=== PATIENT | female | born 1950 | race Caucasian/White ===

== ENCOUNTER 2019-10-28 13:27 | Outpatient (CLI) | payer MEDICARE, MEDICAID, SELFPAY ==
--- NOTE | 2019-10-28 14:10 | ECG_ITS ---
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
== END 2019-10-28 13:28 | disposition home or self-care (01) ==
PROVIDERS: PCP Internal Medicine
DX: Z79.899 Other long term (current) drug therapy (principal)
CPT/HCPCS: 93005

== ENCOUNTER 2020-08-11 14:00 | Outpatient (CLI) | payer MEDICARE, MEDICAID, SELFPAY ==
--- NOTE | ~2020-08-11 | DEXA_ITS ---
Bone Density Report Name: Carmen Ware Age: 69 Sex: Female Ethnicity: White Date of : 1950 Indication: postmenopausal; screening for osteoporosis; height loss; hysterectomy; Referring Provider: Kiel Nelson Study: Bone densitometry was performed. Exam Date: August 11, 2020 Accession number: [id number] Bone Density: Region BMD T-score Z-score Classification AP Spine(L1-L4) 0.785 -2.4 -0.4 Osteopenia Femoral Neck (Left) 0.631 -2.0 -0.2 Osteopenia Total Hip (Left) 0.715 -1.9 -0.4 Osteopenia Femoral Neck (Right) 0.545 -2.7 -1.0 Osteoporosis Total Hip (Right) 0.674 -2.2 -0.8 Osteopenia Femoral Neck Mean 0.588 -2.3 -0.6 Osteopenia Total Hip Mean 0.695 -2.0 -0.6 Osteopenia World Health Organization criteria for BMD impression classify patients as: Normal (T-score at or above -1.0), Osteopenia (T-score between -1.0 and -2.5), or Osteoporosis (T-score at or below -2.5). 10-year Fracture Risk: FRAX not reported because: Some T-score for Spine Total or Hip Total or Femoral Neck at or below -2.5 Clinical Information Provided by Patient: Smokes Has the following medical conditions: Hysterectomy Patient maximum height was 60 Menopause Age: 48 No regular weight bearing exercise Drinks caffeinated beverages Onset of menses at age 10 Missed period for more than 6 months in a row Impression: The patient has osteoporosis, based on the Right Femoral Neck T-score. The patient has risk factors, including: smoking. Discussion: INCREASED RISK OF FRACTURE. BONE DENSITY IS UNDESIRABLY LOW AT ONE OR MORE SKELETAL SITES, CONSISTENT WITH POSTMENOPAUSAL OSTEOPOROSIS. This patient's lowest T-score meets the World Health Organization's (WHO) criteria for osteoporosis at one or more sites (T-score -2.5 or below). In untreated patients, the risk of osteoporotic fracture increases approximately two-fold for each 1.0 SD decrease in T-score. Low bone density is not the only risk factor for fracture; also consider factors such as patient's age, frailty or poor health, risk of falling, risk of injury, previous osteoporotic fracture, family history of osteoporosis, cigarette smoking, low body weight, etc. Not everyone with low bone mineral density has osteoporosis; osteomalacia and other metabolic bone disorders should also be considered. Patients who have osteoporosis should be evaluated for specific diseases and conditions (secondary causes) that may cause or contribute to bone loss. The [place] Association of Clinical Endocrinologists (AACE) and National Osteoporosis Foundation (NOF) recommend pharmacologic intervention for all postmenopausal women whose T-score is in this range. The patient should follow a healthful lifestyle (good nutrition with adequate calcium and vitamin D, and appropriate weight
[2020-08-11 14:21] LABS: Basophils Absolute Auto 0.08 K/mm3 (0.00-0.10); Basophils Percent Auto 0.7 % (0.0-1.0); Eosinophils Absolute Auto 0.19 K/mm3 (0.02-0.50); Eosinophils Percent Auto 1.8 % (1.0-6.0); Hematocrit 46.3 % (35.0-42.0); Hemoglobin 15.5 g/dL (11.7-13.8); Immature Granulocyte Absolute 0.04 K/mm3 (0.00-0.00); Immature Granulocyte Percent A 0.4 % (0.0-0.0); Lymphocytes Absolute Auto 3.25 K/mm3 (1.10-4.50); Lymphocytes Percent Auto 30.3 % (18.0-42.0); Mean Corpuscular HGB Conc 33.5 g/dL (32.0-36.0); Mean Corpuscular Hemoglobin 30.5 pg (27.0-31.0); Mean Platelet Volume 9.5 fl (9.2-11.8); Monocytes Absolute Auto 0.72 K/mm3 (0.10-0.90); Monocytes Percent Auto 6.7 % (2.0-11.0); Neutrophils Absolute Auto 6.5 K/mm3 (1.7-7.2); Neutrophils Percent Auto 60.1 % (50.0-70.0); Platelet Count Result 301 K/mm3 (150-420); Red Blood Count 5.09 M/mm3 (4.20-5.40); Red Cell Distribution Width 13.2 % (11.6-14.4); White Blood Count 10.7 K/mm3 (4.8-10.8)
[2020-08-11 15:51] LABS: Alanine Aminotransferase 12 U/L (14-59); Albumin Level 3.5 g/dL (3.4-5.0); Alkaline Phosphatase 107 U/L (46-116); Anion Gap 9 mmol/L (8-16); Aspartate Amino Transferase 11 U/L (15-37); Bilirubin,Total 0.3 mg/dL (0.00-1.00); Blood Urea Nitrogen 11 mg/dL (7-18); Calcium 8.7 mg/dL (8.5-10.1); Carbon Dioxide 29 mmol/L (21-32); Chloride 96 mmol/L (98-108); Cholesterol 200 mg/dL (0-200); Estimated Glomerular Filt Rate 58; Glucose 73 mg/dL (70-99); HDL Direct 63 mg/dL (40-60); LDL Cholesterol Calculated 123 mg/dL (<130); Magnesium 2.1 mg/dL (1.8-2.4); Osmolality Calculated 276 mOsm/kg (285-295); Potassium 3.4 mmol/L (3.5-5.1); Sodium 134 mmol/L (136-145); Total Protein 7.4 g/dL (6.4-8.2); Triglycerides 72 mg/dL (0-150)
== END 2020-08-11 14:01 | disposition home or self-care (01) ==
LOC: CHSLAB 14:02
PROVIDERS: PCP Internal Medicine; Visit Provider Internal Medicine
DX: M81.0 Age-related osteoporosis without current pathological fracture (principal); J44.9 Chronic obstructive pulmonary disease, unspecified; I12.9 Hypertensive chronic kidney disease with stage 1 through stage 4 chronic kidney disease, or unspecified chronic kidney disease; N18.2 Chronic kidney disease, stage 2 (mild)
CPT/HCPCS: 36415; 77080; 80053; 80061; 83735; 85025

== ENCOUNTER 2020-11-17 08:53 | Outpatient (CLI) | payer MEDICARE, MEDICAID, SELFPAY ==
--- NOTE | ~2020-11-17 | XR_ITS ---
EXAMINATION: XR barium swallow EXAM DATE: 11/17/2020 10:06 INDICATION: Cough. Dysphagia. Sore throat. TECHNIQUE: Standard contrast barium esophagram examination was performed. Effervescent crystals were ingested. The DAP for this procedure was 1.7 Gycm2. Correlation is made to chest CT same day. FINDINGS: The pharynx is symmetric and without evidence of mass lesion or mucosal irregularity. Ther e is no esophageal stricture or mass identified. There are no esophageal diverticula. Moderate size sliding gastroesophageal hiatal hernia. No aspiration was demonstrated. There are cholecystectomy cli ps. IMPRESSION: Moderate size sliding gastroesophageal hiatal hernia. Reviewed, dictated and finalized at location B. DEVELOPER
--- NOTE | ~2020-11-17 | CT_ITS ---
EXAMINATION: CT diagnostic chest w con EXAM DATE: 11/17/2020 10:07 INDICATION: Dysphagia, cough, sore throat. TECHNIQUE: Spiral CT of the chest following intravenous injection of 75 mL Omnipaque 350. Axial, cor onal and sagittal images were reviewed. Coronal maximum intensity pixel images of chest reviewed. T he dose-length product (DLP) for this examination was 153.63 mGy-cm. The exposure was tailored accor ding to patient size (auto mA exposure control), and iterative reconstruction (ASIR) was used as dudley tional dose reduction technique. Comparison is made to prior examination from 08/23/2019. FINDINGS: There is been improvement in the previously seen scattered small opacities, likely resolut ion of the acute component of previously seen airspace disease. There is persistent faint diffuse tremayne trilobular groundglass opacities. Given that this is suspected to be chronic, would consider respirat ory bronchiolitis-interstitial lung disease (RB ILD), hypersensitivity pneumonitis, chronic infection . Please clinically correlate. No confluent consolidation or acute pneumonia. There is 4 mm nodule right lower lobe image 71, and an other right lower lobe image 43, stable noncalcified granulomata. No suspicious nodules. Mild emphyse ma and moderate hyperinflation. There are no pleural or pericardial effusions. Tracheobronchial barbra e is patent. There is no mediastinal, hilar or axillary lymphadenopathy. There is no pneumothorax . Heart normal in size. No evidence of coronary arterial calcification. There are cholecystectom y clips. There is moderate sliding gastroesophageal hiatal hernia. Thoracic esophagus unremarkable. T here is thoracic spondylosis without osteoblastic or osteolytic lesions identified. IMPRESSION: 1. Faint diffuse centrilobular from glass nodular opacities, could be RB-ILD if patient is smoker. O ther possibilities above. 2. Resolution of previously acute component of the airspace disease. 3. Emphysema, hyperinflation. 4. Moderate-sized hiatal hernia. Reviewed, dictated and finalized at location B. 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 Faint diffuse centrilobular from glass nodular opacities, could be RB-ILD i f patient is smoker. Other possibilities above. 2. Resolution of previously acute component of the airspace disease. 3. Emphysema, hyperinflation. 4. Moderate-sized hiatal hernia.
[2020-11-17 09:29] LABS: Estimated Glomerular Filt Rate 49
== END 2020-11-17 08:54 | disposition home or self-care (01) ==
LOC: CHSIMG 08:56
PROVIDERS: PCP Internal Medicine; Visit Provider Internal Medicine
DX: R13.10 Dysphagia, unspecified (principal); R05 Cough
CPT/HCPCS: 71260; 74220; Q9967

== ENCOUNTER 2021-01-08 10:52 | Outpatient (CLI) | payer MEDICARE, MEDICAID, SELFPAY ==
--- NOTE | ~2021-01-08 | XR_ITS ---
EXAMINATION: XR knee LT 3V DATE: 01/08/2021 11:34 INDICATION: Left knee pain. TECHNIQUE: 3 views of left knee were obtained. COMPARISON: None. FINDINGS: Bone alignment is normal. No fracture. There is mild osteoarthritis of medial and patellofe moral compartments. No knee joint effusion. IMPRESSION: 1. Mild left knee osteoarthritis. Reviewed, dictated and finalized at location A.
--- NOTE | ~2021-01-08 | XR_ITS ---
EXAMINATION: XR hand LT min 3V DATE: 01/08/2021 11:35 INDICATION: Left hand pain. TECHNIQUE: 3 views of left hand were obtained. COMPARISON: Left wrist radiographs 05/13/2008 FINDINGS: There is an old healed fracture of distal radius with internal fixation with volar plate an d screws. No acute fracture. There is mild osteoarthritis of triscaphe joint and first carpometacarpa l joint. There is moderate osteoarthritis of first metacarpophalangeal joint and mild osteoarthritis of second-fourth metacarpophalangeal joints. There is severe osteoarthritis of first interphalangeal joint and second distal interphalangeal joint, moderate osteoarthritis of third and fifth distal inte rphalangeal joints, and mild osteoarthritis of the other interphalangeal joints. IMPRESSION: 1. Polyarticular osteoarthritis. Reviewed, dictated and finalized at location A.
--- NOTE | ~2021-01-08 | XR_ITS ---
EXAMINATION: XR wrist LT min 3V DATE: 01/08/2021 11:35 INDICATION: Left wrist injury and pain. TECHNIQUE: 4 views of left wrist were obtained. COMPARISON: None. FINDINGS: Bone alignment is normal. There is an old healed fracture of distal radius with internal fi xation with volar plate and screws. There is 9 degrees palmar tilt of the distal articular surface. N o acute fracture. There is mild osteoarthritis of triscaphe joint and first carpometacarpal joint. IMPRESSION: 1. Mild polyarticular osteoarthritis. 2. Old healed fracture of distal radius with internal fixation. Reviewed, dictated and finalized at location A.
[2021-01-08 11:09] LABS: Basophils Absolute Auto 0.15 K/mm3 (0.00-0.10); Basophils Percent Auto 1.9 % (0.0-1.0); Hematocrit 45.6 % (35.0-42.0); Hemoglobin 14.9 g/dL (11.7-13.8); Immature Granulocyte Absolute 0.03 K/mm3 (0.00-0.00); Immature Granulocyte Percent A 0.4 % (0.0-0.0); Lymphocytes Absolute Auto 2.48 K/mm3 (1.10-4.50); Mean Corpuscular HGB Conc 32.7 g/dL (32.0-36.0); Mean Corpuscular Hemoglobin 30.2 pg (27.0-31.0); Mean Corpuscular Volume 92.3 fL (78.0-102.0); Monocytes Absolute Auto 0.72 K/mm3 (0.10-0.90); Neutrophils Absolute Auto 4.2 K/mm3 (1.7-7.2); Neutrophils Percent Auto 52.7 % (50.0-70.0); Platelet Count Result 279 K/mm3 (150-420); Red Blood Count 4.94 M/mm3 (4.20-5.40)
[2021-01-08 11:37] LABS: Alanine Aminotransferase 14 U/L (14-59); Alkaline Phosphatase 94 U/L (46-116); Anion Gap 8 mmol/L (8-16); Aspartate Amino Transferase < 10 U/L (15-37); Bilirubin,Total 0.4 mg/dL (0.00-1.00); Blood Urea Nitrogen 13 mg/dL (7-18); Calcium 8.3 mg/dL (8.5-10.1); Carbon Dioxide 24 mmol/L (21-32); Chloride 104 mmol/L (98-108); Estimated Glomerular Filt Rate 56; Glucose 76 mg/dL (70-99); Magnesium 2.1 mg/dL (1.8-2.4); Osmolality Calculated 281 mOsm/kg (285-295); Potassium 4.3 mmol/L (3.5-5.1); Sodium 136 mmol/L (136-145); Total Protein 6.5 g/dL (6.4-8.2)
== END 2021-01-08 10:53 | disposition home or self-care (01) ==
PROVIDERS: PCP Internal Medicine; Visit Provider Internal Medicine
DX: S69.92XA Unspecified injury of left wrist, hand and finger(s), initial encounter (principal); S89.92XA Unspecified injury of left lower leg, initial encounter
CPT/HCPCS: 36415; 73110; 73130; 73562; 80053; 83735; 85025

== ENCOUNTER 2021-04-04 08:10 | Outpatient (CLI) | payer MEDICARE, MEDICAID, SELFPAY ==
--- NOTE | ~2021-04-04 | CT_ITS ---
EXAMINATION: CT lung screening DATE: 04/04/2021 09:09 INDICATION: Personal history of tobacco dependence, current smoker with 50 pack year history TECHNIQUE: Computed tomography (CT) of the chest was performed without intravenous contrast. The dose -length product (DLP) was 82.78 mGy-cm. Automated exposure control and iterative reconstruction techn [place] were employed. COMPARISON: 11/17/2020, 03/03/2019 FINDINGS: There is mild emphysema. Stable 5 mm nodules of the right lower lobe are consistent with ol d granulomatous disease. No new pulmonary nodules are identified. The lungs are free of acute opaciti es. There is no pleural effusion or pneumothorax. There is a large sliding hiatal hernia. No patholog ically enlarged thoracic lymph nodes are identified. The heart size is normal. Calcified coronary art tono atherosclerosis is noted. The gallbladder is surgically absent. There is a [address] one of the left kidney. There is moderate thoracic spondylosis. IMPRESSION: 1. Lung-RADS category 2: Benign appearance or behavior. Continue annual screening with noncontrast lo w-dose chest CT in 12 months. Reviewed, dictated and finalized at location A. IMPRESSION: 1. Lung-RADS category 2: Benign appearance or behavior. Continue annual screeni ng with noncontrast low-dose chest CT in 12 months.
--- NOTE | ~2021-04-04 | MR_ITS ---
EXAMINATION: MR brain/brain stem wo con EXAM DATE: 04/04/2021 09:43 INDICATION: Ataxia, unsteady gait, leg weakness. TECHNIQUE: Magnetic resonance imaging (MRI) of the brain/brain stem obtained without contrast. Leónitt al T1, axial diffusion, gradient echo (T2*), T1, T2, FLAIR sequences obtained. Comparison is made to prior examination from 08/20/2014. FINDINGS: There are no areas of restricted diffusion to suggest acute infarction. There is no acute hemorrhage seen on the T2*, a hemosiderin sensitive sequence. No intraparenchymal brain mass lesion. There is mild periventricular and subcortical T2/FLAIR signal hyperintensity, nonspecific but probab ly related to small vessel ischemic disease (microangiopathy), mild progression in these compared to 2014. There are no extra-axial collections. Flow voids are seen in the cerebral arteries on the T2- weighted sequences consistent with their expected patency. The orbits are unremarkable. Soft tissue is unremarkable. Trace right mastoid effusion. IMPRESSION: 1. No acute intracranial findings. 2. Mild microangiopathy. Reviewed, dictated and finalized at location B.
== END 2021-04-04 08:11 | disposition home or self-care (01) ==
LOC: CHSIMG 08:12
PROVIDERS: PCP Internal Medicine; Visit Provider Internal Medicine
DX: R27.0 Ataxia, unspecified (principal); J44.9 Chronic obstructive pulmonary disease, unspecified; Z12.2 Encounter for screening for malignant neoplasm of respiratory organs; Z87.891 Personal history of nicotine dependence
CPT/HCPCS: 70551; 71271

== ENCOUNTER 2021-07-26 11:05 | Outpatient (CLI) | payer MEDICARE, MEDICAID, SELFPAY ==
[2021-07-26 11:49] LABS: SARS-CoV-2 RNA PCR Negative (Negative)
== END 2021-07-26 11:06 | disposition home or self-care (01) ==
LOC: CHSLAB 11:08
PROVIDERS: PCP Internal Medicine; Visit Provider Internal Medicine
DX: Z20.822 Contact with and (suspected) exposure to COVID-19 (principal)
CPT/HCPCS: C9803; U0003; U0005

== ENCOUNTER 2021-09-14 12:20 | Outpatient (CLI) | payer MEDICARE, SELFPAY ==
[2021-09-14 12:42] LABS: Basophils Absolute Auto 0.07 K/mm3 (0.00-0.10); Basophils Percent Auto 0.7 % (0.0-1.0); Eosinophils Absolute Auto 0.12 K/mm3 (0.02-0.50); Eosinophils Percent Auto 1.2 % (1.0-6.0); Hematocrit 37.3 % (35.0-42.0); Hemoglobin 12.3 g/dL (11.7-13.8); Immature Granulocyte Absolute 0.04 K/mm3 (0.00-0.00); Immature Granulocyte Percent A 0.4 % (0.0-0.0); Lymphocytes Absolute Auto 2.36 K/mm3 (1.10-4.50); Lymphocytes Percent Auto 24.5 % (18.0-42.0); Mean Corpuscular Hemoglobin 30.4 pg (27.0-31.0); Mean Corpuscular Volume 92.1 fL (78.0-102.0); Mean Platelet Volume 10.5 fl (9.2-11.8); Monocytes Absolute Auto 0.87 K/mm3 (0.10-0.90); Neutrophils Absolute Auto 6.2 K/mm3 (1.7-7.2); Neutrophils Percent Auto 64.2 % (50.0-70.0); Platelet Count Result 234 K/mm3 (150-420); Red Blood Count 4.05 M/mm3 (4.20-5.40); White Blood Count 9.6 K/mm3 (4.8-10.8)
[2021-09-14 12:47] LABS: Base Excess ABG -2.8 mmol/L (0-2); HCO3 ABG 20.3 mmol/L (23-29); Oxygen Content ABG 16.8 %vol (16.0-22.0); Oxygen Saturation ABG 98.7 % (95-97); Oxyhemoglobin 92.1 % (94-100); PCO2 ABG 30.4 mmHg (35-45); PO2 ABG 142.6 mmHg (75-85); Total Hemoglobin 12.8 g/dL (12.0-18.0); pH ABG 7.44 (7.35-7.45)
[2021-09-14 12:49] LABS: Device ROOM AIR; Modified Allen's Test Pass; Site Drawn RIGHT RADIAL
[2021-09-14 13:21] LABS: Alanine Aminotransferase 11 U/L (14-59); Albumin Level 2.4 g/dL (3.4-5.0); Alkaline Phosphatase 79 U/L (46-116); Amylase 39 U/L (25-115); Anion Gap 13 mmol/L (8-16); Aspartate Amino Transferase < 10 U/L (15-37); Bilirubin,Total 0.3 mg/dL (0.00-1.00); Blood Urea Nitrogen 11 mg/dL (7-18); Calcium 7.9 mg/dL (8.5-10.1); Carbon Dioxide 21 mmol/L (21-32); Chloride 108 mmol/L (98-108); Estimated Glomerular Filt Rate > 60; Glucose 75 mg/dL (70-99); Lipase 47 U/L (73-393); NT Pro B Type Natriuretic Pept 2114 pg/mL (0-125); Osmolality Calculated 292 mOsm/kg (285-295); Sodium 142 mmol/L (136-145)
[2021-09-14 14:33] LABS: Creatine Kinase 23 U/L (26-192); Lactate Dehydrogenase 160 U/L (81-234); Troponin I 6.8 ng/L (0.00-60.4)
== END 2021-09-14 12:21 | disposition home or self-care (01) ==
LOC: CHSLAB 12:22
PROVIDERS: PCP Internal Medicine; Visit Provider Internal Medicine
DX: R06.00 Dyspnea, unspecified (principal); J44.9 Chronic obstructive pulmonary disease, unspecified; R10.9 Unspecified abdominal pain
CPT/HCPCS: 36415; 36600; 80053; 82150; 82550; 82553; 82805; 83615; 83690; 83880; 84484; 85025

== ENCOUNTER 2021-09-28 12:57 | Outpatient (CLI) | payer MEDICARE, MEDICAID, SELFPAY ==
--- NOTE | 2021-09-28 13:10 | ECHO_ITS ---
Patient Info Name: Carmen Ware Age: 70 years : 1950 Gender: Female Ht: 59 in Wt: 152 lbs BSA: 1.72 m2 HR: 75 bpm BP: 153 / 58 mmHg Technical Quality: Good Exam Date: 09/28/2021 1:58 PM Exam Location: [facility] Patient Status: Outpatient Admit Date: 09/28/2021 Staff Ordering Physician: Kiel Nelson MD Metalizer: Consuelo Haley Attending Provider: Kiel Nelson MD Exam Type: CA echo doppler color flow Study Info Indications R06.00 - Dyspnea, unspecified Complete two-dimensional, color flow and Doppler transthoracic echocardiogram is performed. Strain analysis performed. Summary 1. Complete two-dimensional, color flow and Doppler transthoracic echocardiogram is performed. 2. Left ventricular chamber dimension is normal. 3. Left ventricular systolic function is normal, estimated at 60-65%. 4. There is mildly increased left ventricular wall thickness. 5. The left ventricular diastolic function is abnormal. 6. E/e' 17 is elevated. 7. Global longitudinal strain is mildly abnormal at -16.3%. 8. There is mild to moderate aortic valve regurgitation. 9. There is mild mitral valve regurgitation. 10. Mild pulmonary hypertension, estimated pulmonary arterial systolic pressure is 47 mmHg. 11. There is mild pulmonic regurgitation. Left Ventricle E/e' 17 is elevated. Global longitudinal strain is mildly abnormal at -16.3%. Left ventricular chamber dimension is normal. Left ventricular systolic function is normal, estimated at 60-65%. There is mildly increased left ventricular wall thickness. The left ventricular diastolic function is abnormal. Right Ventricle Right ventricular systolic function is normal and with normal TAPSE 2.0 cm. Right ventricular chamber dimension is normal. Left Atria Left atrial chamber dimension is normal. Right Atria Right atrial chamber dimension is normal. Aortic Valve The aortic valve is trileaflet. There is no aortic valve stenosis. There is mild to moderate aortic valve regurgitation. Pulmonic Valve There is mild pulmonic regurgitation. Mitral Valve There is no mitral valve stenosis. There is mild mitral valve regurgitation. Tricuspid Valve There is no tricuspid valve regurgitation. Mild pulmonary hypertension, estimated pulmonary arterial systolic pressure is 47 mmHg. Pericardium/Pleural There is no pericardial effusion. Inferior Vena Cava Normal inferior vena cava with >50% collapse upon inspiration consistent with normal right atrial pressure, 5 mmHg. Aorta The aortic root size at the sinus of Valsalva is normal. Left Ventricular Outflow Tract Name Value Normal LVOT 2D LVOT Diameter 2.0 cm LVOT Doppler LVOT Peak Velocity 107 cm/s LVOT Peak Gradient 5 mmHg LVOT Mean Gradient 2 mmHg LVOT VTI 28 cm LVOT VTI/AV VTI Ratio 1.0 LVOT Stroke Volume 86 ml Mitral Valve Name
== END 2021-09-28 12:58 | disposition home or self-care (01) ==
LOC: CHSIMG 13:01
PROVIDERS: PCP Internal Medicine; Visit Provider Internal Medicine
DX: R06.00 Dyspnea, unspecified (principal); I50.9 Heart failure, unspecified
CPT/HCPCS: 93306

== ENCOUNTER 2021-11-21 12:57 | Outpatient (CLI) | payer MEDICARE, MEDICAID, SELFPAY ==
[2021-11-21 13:52] LABS: SARS-CoV-2 RNA PCR Negative (Negative)
== END 2021-11-21 12:58 | disposition home or self-care (01) ==
LOC: CHSLAB 12:59
PROVIDERS: PCP Internal Medicine; Visit Provider Internal Medicine
DX: Z20.822 Contact with and (suspected) exposure to COVID-19 (principal)
CPT/HCPCS: C9803; U0003; U0005

== ENCOUNTER 2021-12-05 09:36 | Outpatient (CLI) | payer MEDICARE, MEDICAID, SELFPAY ==
[2021-12-05 10:20] VITALS: PULSE 81; O2SAT 96
[2021-12-05 10:25] VITALS: PULSE 99; O2SAT 95
[2021-12-05 10:35] VITALS: PULSE 82; O2SAT 96
--- NOTE | 2021-12-05 11:13 | HOMEO2EVAL ---
Evaluation was performed at [facility] Home Oxygen Evaluation RC: Home Oxygen (O2) Evaluation Start: 12/05/21 11:11 Freq: Status: Active Protocol: RPE Activity Type Activity Date Activity User E-Sign Co-Sign Detail Recorded Client Recorded Date Recorded By Document 12/05/21 10:20 DJO [id number] 12/05/21 11:13 DJO Document 12/05/21 10:25 [email or web address] [email or web address] 12/05/21 11:13 DJO Document 12/05/21 10:35 [email or web address] [email or web address] 12/05/21 11:13 DJO 12/05/21 12/05/21 12/05/21 10:20 10:25 10:35 Home O2 Evaluation Test Phase Resting Exercise Resting Oxygen Delivery Room Air Room Air Room Air Pulse Oximetry (90-100 %) 96 95 96 Pulse Rate (60-100 beats/min) 81 99 82 Activity Tolerance Good Rating of Perceived Dyspnea (PD) +1 Mild, Noticeable to the Participant but Not to an Observer Ambulation Distance (feet) 500 Ambulation Distance (meters) 152.39 Treatment Charges O2 Evaluation - Outpatient
--- NOTE | 2021-12-05 12:43 | WPDPFTINT ---
PFT Procedure Performed PFT Procedure Performed Spirometry with Pre/Post Bronchodilator Plethysmography (Lung Vol) Diffusing Cap (DLCO) Flow Vol Loop PFT Interpretation This is a pulmonary function test with pre and post-bronchodilator spirometry, plethysmography and diffusing capacity. The test was performed and results interpreted in accordance with the 2019 and 2005 ATS/ERS Task Force guidelines respectively using the Global Lung Function Initiative-2012 reference equations. Patient demonstrated good effort and cooperation. Reproducibility criteria were met. The quality of the pre bronchodilator spirometry maneuver was Grade B and post bronchodilator spirometry maneuver was Grade B. Findings: Spirometry: There is decreased maximal expiratory airflow at low lung but low lung volumes with a mildly concave expiratory flow tracing. The pre bronchodilator FVC is 2.42 L, 102% predicted. The pre bronchodilator FEV1 is 1.69 L, 91% predicted. The FEV1: FVC ratio 70%. The post bronchodilator FVC is 2.44 L, representing 1% increase. The post bronchodilator FEV1 is 1.53 L, representing a 10% decrease. The post bronchodilator FEV1: FVC ratio 63%. Plethysmography: The total lung capacity is 4.64 L, 108% predicted. The functional residual capacity is 2.68 L, 110% predicted. The residual volume is 2.17 L, 112% predicted. Diffusing capacity: The diffusing capacity unadjusted for hemoglobin and carboxyhemoglobin is 11.2, 61% predicted. The diffusing capacity adjusted for alveolar volume is 3.38, 75% predicted. Impression: There is a mild obstructive abnormality with a normal FEV1 and without significant improvement after inhaling a single dose of albuterol. the lung volumes are normal. The diffusing capacity unadjusted for hemoglobin and carboxyhemoglobin is mildly decreased and normalizes when adjusted for alveolar volume. There are no prior studies for comparison
== END 2021-12-05 09:37 | disposition home or self-care (01) ==
PROVIDERS: PCP Internal Medicine; Visit Provider Internal Medicine Pulmonary Disease
DX: J44.9 Chronic obstructive pulmonary disease, unspecified (principal); R06.00 Dyspnea, unspecified; R94.2 Abnormal results of pulmonary function studies
CPT/HCPCS: 94060; 94618; 94726; 94729

== ENCOUNTER 2022-01-14 15:02 | Outpatient (CLI) | payer MEDICARE, MEDICAID, SELFPAY ==
--- NOTE | 2022-01-14 15:05 | ECG_ITS ---
Measurements Intervals [place] Rate: 76 P: 52 MN: 154 QRS: 45 QRSD: 86 T: 53 QT: 437 QTc: 493 Interpretive Statements SINUS RHYTHM DELAYED PRECORDIAL R/S TRANSITION BORDERLINE ST-T WAVE ABNORMALITY- HIGH LATERAL LEADS BORDERLINE ECG Electronically Signed On 01-14-2022 15:18:21 CDT by Noah Raman D.O.
== END 2022-01-14 15:03 | disposition home or self-care (01) ==
LOC: CHSIMG 15:05
PROVIDERS: PCP Internal Medicine; Visit Provider Internal Medicine Cardiovascular Disease
DX: I51.89 Other ill-defined heart diseases (principal)
CPT/HCPCS: 93005

== ENCOUNTER 2022-01-25 09:53 | Outpatient (CLI) | payer MEDICARE, MEDICAID, SELFPAY ==
[2022-01-25 17:52] LABS: SARS-CoV-2 RNA PCR Negative (Negative)
== END 2022-01-25 09:54 | disposition home or self-care (01) ==
LOC: CHSLAB 09:58
PROVIDERS: PCP Internal Medicine; Visit Provider Ophthalmology
DX: Z20.822 Contact with and (suspected) exposure to COVID-19 (principal)
CPT/HCPCS: C9803; U0003; U0005

== ENCOUNTER 2022-04-23 13:55 | Outpatient (CLI) | payer MEDICARE, MEDICAID, SELFPAY ==
[2022-04-23 14:11] LABS: Basophils Percent Auto 1.2 % (0.0-1.0); Eosinophils Percent Auto 3.7 % (1.0-6.0); Hematocrit 41.2 % (35.0-42.0); Hemoglobin 13.2 g/dL (11.7-13.8); Immature Granulocyte Absolute 0.03 K/mm3 (0.00-0.00); Immature Granulocyte Percent A 0.4 % (0.0-0.0); Lymphocytes Absolute Auto 3.01 K/mm3 (1.10-4.50); Lymphocytes Percent Auto 37.3 % (18.0-42.0); Mean Corpuscular Hemoglobin 28.8 pg (27.0-31.0); Monocytes Absolute Auto 0.69 K/mm3 (0.10-0.90); Monocytes Percent Auto 8.6 % (2.0-11.0); Neutrophils Absolute Auto 3.9 K/mm3 (1.7-7.2); Neutrophils Percent Auto 48.8 % (50.0-70.0); Platelet Count Result 295 K/mm3 (150-420); Red Blood Count 4.58 M/mm3 (4.20-5.40); Red Cell Distribution Width 17.1 % (11.6-14.4); White Blood Count 8.1 K/mm3 (4.8-10.8)
[2022-04-23 14:38] LABS: Alanine Aminotransferase 9 U/L (14-59); Albumin Level 3.2 g/dL (3.4-5.0); Alkaline Phosphatase 112 U/L (46-116); Anion Gap 9 mmol/L (8-16); Aspartate Amino Transferase < 10 U/L (15-37); Bilirubin,Total 0.2 mg/dL (0.00-1.00); Blood Urea Nitrogen 12 mg/dL (7-18); Calcium 8.3 mg/dL (8.5-10.1); Carbon Dioxide 23 mmol/L (21-32); Chloride 108 mmol/L (98-108); Cholesterol 198 mg/dL (0-200); Estimated Glomerular Filt Rate 50; Glucose 81 mg/dL (70-99); HDL Direct 55 mg/dL (40-60); LDL Cholesterol Calculated 130 mg/dL (<130); NT Pro B Type Natriuretic Pept 1369 pg/mL (0-125); Osmolality Calculated 288 mOsm/kg (285-295); Potassium 3.6 mmol/L (3.5-5.1); Sodium 140 mmol/L (136-145); Triglycerides 65 mg/dL (0-150)
[2022-04-24 09:29] LABS: Phosphorus 3.8 mg/dL (2.6-4.7)
== END 2022-04-23 13:56 | disposition home or self-care (01) ==
PROVIDERS: PCP Internal Medicine; Visit Provider Internal Medicine Cardiovascular Disease
DX: R06.00 Dyspnea, unspecified (principal); R53.83 Other fatigue; I10 Essential (primary) hypertension; J44.9 Chronic obstructive pulmonary disease, unspecified; I51.89 Other ill-defined heart diseases; E83.51 Hypocalcemia
CPT/HCPCS: 36415; 80053; 80061; 83880; 84100; 85025

== ENCOUNTER 2022-05-07 15:04 | Outpatient (CLI) | payer MEDICARE, MEDICAID, SELFPAY ==
[2022-05-09 14:17] LABS: Vitamin D 25 Hydroxy 8 ng/mL (30-100)
[2022-05-10 13:32] LABS: Parathyroid Intact 55 pg/mL (14-64)
== END 2022-05-07 15:05 | disposition home or self-care (01) ==
LOC: CHSLAB 15:10
PROVIDERS: PCP Internal Medicine; Visit Provider Internal Medicine
DX: E83.51 Hypocalcemia (principal)
CPT/HCPCS: 36415; 82306; 83970

== ENCOUNTER 2022-07-01 09:06 | Outpatient (CLI) | payer MEDICARE, MEDICAID, SELFPAY ==
--- NOTE | ~2022-07-01 | XR_ITS ---
XR shoulder LT min 2V DATE: 07/01/2022 09:31 INDICATION: Left shoulder pain since hitting doorway one month ago TECHNIQUE: 4 views COMPARISON: 07/31/2018 left shoulder FINDINGS: There is osteopenia. No recent fracture or dislocation, periosteal reaction or bone destruction of the left shoulder or ab normal left shoulder soft tissue calcification. Mild degenerative change at the left acromioclavicula r joint. Old healed fracture of the posterolateral left seventh rib. Diffuse idiopathic skeletal hyperostosis of the thoracic spine. IMPRESSION: No recent fracture or dislocation Osteopenia Reviewed, dictated and finalized at location A.
== END 2022-07-01 09:07 | disposition home or self-care (01) ==
PROVIDERS: PCP Internal Medicine; Visit Provider Internal Medicine
DX: M25.512 Pain in left shoulder (principal)
CPT/HCPCS: 73030

== ENCOUNTER 2022-07-21 10:19 | Emergency (ER) | payer MEDICARE, MEDICAID, SELFPAY ==
--- NOTE | ~2022-07-21 | CT_ITS ---
EXAMINATION: CT lumbar spine wo con DATE: 07/21/2022 12:11 INDICATION: Low back pain TECHNIQUE: Computed tomography (CT) of the lumbar spine was performed without intravenous contrast. T he dose-length product (DLP) was 347.72 mGy-cm. Iterative reconstruction was used. COMPARISON: 08/23/2019 FINDINGS: There are 2 mm of anterolisthesis of L3 on L4. The vertebral body heights are maintained. T here is no fracture. There is mild loss of intervertebral disc space height at L2-3. Small degenerati ve osteophytes project from the anterior endplates of multiple vertebral bodies. There is mild to mod erate facet joint osteoarthritis. Severe spondylosis is noted in the lower thoracic spine. The prever tebral soft tissues are normal. There is a 3 mm nonobstructing stone of the left kidney. A moderate-s ized sliding hiatal hernia is noted. IMPRESSION: 1. Mild lumbar spondylosis without acute findings. Reviewed, dictated and finalized at location A. 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
[2022-07-21 10:35] VITALS: BP 182/78; PULSE 76; RESP 16; TEMP 36.6; O2SAT 98
--- NOTE | 2022-07-21 10:48 | ED.BACK ---
HPI - Back Pain/Injury General Chief Complaint: Back Pain/Injury Stated Complaint: back pain low Time Seen by Provider: 07/21/22 10:48 Source: patient and RN notes reviewed Mode of arrival: ambulatory Limitations: no limitations History of Present Illness HPI Narrative: Patient states that she was just sitting in a chair playing a game on her phone when she had sudden onset of lumbar back pain. She does not recall any injury. She denies any numbness or tingling or radiation of pain down her lower extremities. MD elicited complaint: back pain Onset (ago): day(s) (5) Timing: constant and progressively worsening Severity: moderate Similar Symptoms Previously: No Quality: sharp, aching and spasming Location: lumbar spine Radiation: none Exacerbating factors: walking Relieving factors: supine Associated symptoms: denies other symptoms Related Data Home Medications Medication Instructions Recorded Confirmed buspirone 5 mg tablet 5 mg PO BID 01/09/22 07/21/22 citalopram 10 mg tablet 10 mg PO DAILY 01/09/22 07/21/22 famotidine 40 mg tablet 40 mg PO DAILY 01/09/22 07/21/22 melatonin 10 mg capsule 10 mg PO QHS 01/09/22 07/21/22 omeprazole 40 mg capsule,delayed 40 mg PO DAILY 01/09/22 07/21/22 release primidone 50 mg tablet 50 mg PO QHS 01/09/22 07/21/22 topiramate 25 mg sprinkle capsule 25 mg PO DAILY 01/09/22 07/21/22 verapamil 120 mg 24 hr 120 mg PO DAILY 01/09/22 07/21/22 capsule,extended release Allergies Allergy/AdvReac Type Severity Reaction Status Date / Time codeine AdvReac Unknown Verified 07/21/22 10:39 ibuprofen [From Motrin] AdvReac Unknown Verified 07/21/22 10:39 nalbuphine [From Nubain] AdvReac Unknown Verified 07/21/22 10:39 [facility] Past Medical History Medical History (Updated 07/21/22 @ 13:27 by Lei Liang MD) Arthritis COPD (chronic obstructive pulmonary disease) Surgical History Surgical History H/O: hysterectomy Hx of tonsillectomy Family History Family History Mother Heart disease Social History Social History Smoking packs per day: 1.5 Smoking cigarettes per day: 30.0 Years smoked: 50 Smoking pack-years: 75.00 Smoking status: Current every day smoker Alcohol use details: does not drink Substance use: never Gender identity (if verbalized by the patient): Female Exam Const: General: no acute distress, alert and ill appearing chronically Nutritional Appearance: well nourished Orientation/consciousness: patient oriented x3 Limitations: no limitations HENMT: Head: normal to inspection Ears: external ears normal Face/Nose/Sinus: Normal external nose present Face and sinus: normal facial exam Mouth: Yes moist mucous membranes Eyes: Conjunctivae: conjunctivae normal Pupils: Equal, round and reactive pupils present EOM: EOMs intact bilaterally Neck: Neck: normal visual inspection Resp: Effort & Inspection: normal respiratory effort Auscultation: clear to auscultation bilaterally Cardio: Rate: regular rate Rhythm: regular rhythm GI: GI Palp: Yes Soft to palpation and No Tenderness to palpation present (GI) Auscultation: normal bowel sounds Back/Spine/Pelvis: Cervical Spine: cervical ROM normal Thoracic/Lumbar Spine: thoraco-lumbar ROM limited with lateral flexion to the right, with lateral flexion to the left, with rotation to the right and with rotation to the left, lumbar spinal tenderness at L4 and at L5 and No straight leg raise positive Skin: General skin exam: normal color Rashes: no rashes Neuro: General: patient oriented x3, moves all extremities, no focal motor deficits and CN's II-XI intact bilaterally Speech: normal speech Gait exam (Neuro): Normal gait present ( hunched forward does not want to stand up straight) Deep tendon reflexes (DTR's): Right patellar reflex int
[2022-07-21 12:45] VITALS: BP 178/76; PULSE 73; RESP 16; TEMP 36.4; O2SAT 99
[2022-07-21] MEDS: KETOROLAC 30 MG/ML VIAL (*BKC) IM (12:48)
[2022-07-21 13:36] VITALS: BP 178/76; PULSE 73; RESP 16; TEMP 36.4; O2SAT 99
== END 2022-07-21 13:36 | disposition home or self-care (01) ==
PROVIDERS: Emergency Provider Emergency Medicine; PCP Internal Medicine
DX: S39.012A Strain of muscle, fascia and tendon of lower back, initial encounter (principal); J44.9 Chronic obstructive pulmonary disease, unspecified; F17.200 Nicotine dependence, unspecified, uncomplicated
CPT/HCPCS: 72131; 96372; 99284; J1885

== ENCOUNTER 2022-10-16 12:46 | Outpatient (CLI) | payer MEDICARE, MEDICAID, SELFPAY ==
--- NOTE | ~2022-10-16 | US_ITS ---
EXAMINATION: US venous doppler [facility] DATE: 10/16/2022 13:12 INDICATION: Left lower limb swelling. TECHNIQUE: Grayscale ultrasound images without and with compression and Doppler ultrasound images of the left lower extremity veins were obtained. COMPARISON: None. FINDINGS: The visualized portions of left common femoral vein, profunda (deep) femoral vein, femoral vein, popl iteal vein, peroneal veins, and posterior tibial veins are patent. There is thrombus in left greater saphenous vein. IMPRESSION: 1. No deep venous thrombosis. 2. Superficial vein thrombosis involving left greater saphenous vein. Reviewed, dictated and finalized at location A. RT MANAGER
== END 2022-10-16 12:47 | disposition home or self-care (01) ==
LOC: CHSIMG 12:47
PROVIDERS: PCP Internal Medicine; Visit Provider Nurse Practitioner Family
DX: M79.89 Other specified soft tissue disorders (principal); I82.812 Embolism and thrombosis of superficial veins of left lower extremity
CPT/HCPCS: 93971

== ENCOUNTER 2023-06-17 12:42 | Outpatient (CLI) | payer MEDICARE, MEDICAID, SELFPAY ==
--- NOTE | ~2023-06-17 | US_ITS ---
US arterial ankle brachial ind INDICATION: Peripheral vascular disease. TECHNIQUE: Segmental pressures and plethysmographic and Doppler waveforms of the brachial and lower e xtremity arteries were obtained. COMPARISON: None. FINDINGS: Right and left brachial artery pressures of 169 mm Hg and 160 mm Hg, respectively, are concordant (no rmal difference <= 30 mmHg). The right ankle-brachial index (BELINDA) is 0.71 (normal >= 0.9-1.0). The right great toe-brachial index (TBI) is 0.39 (normal >= 0.60). The left BELINDA is 0.59. The left TBI is 0.43. IMPRESSION: 1. Diminished bilateral ankle and toe brachial indices, consistent with mild-moderate peripheral vinicius rial disease. Reviewed, dictated and finalized at location L. IMPRESSION: 1. Diminished bilateral ankle and toe brachial indices, consistent with mild-mo derate peripheral arterial disease.
== END 2023-06-17 12:43 | disposition home or self-care (01) ==
LOC: CHSIMG 12:45
PROVIDERS: PCP Internal Medicine; Visit Provider Internal Medicine Cardiovascular Disease
DX: I73.9 Peripheral vascular disease, unspecified (principal)
CPT/HCPCS: 93922

== ENCOUNTER 2023-10-03 12:17 | Outpatient (CLI) | payer MEDICARE, MEDICAID, SELFPAY ==
--- NOTE | ~2023-10-03 | XR_ITS ---
EXAMINATION: XR chest 2V 10/03/2023 12:51 INDICATION: Cough and shortness of breath. COPD. PROCEDURE: 2 view chest COMPARISON: Comparison to multiple prior studies sequentially, with oldest reviewed study dated 03/04. FINDINGS: The lungs are clear. The cardiomediastinal silhouette is within normal limits. There are no pleural effusions. There is no pneumothorax suspected. There is a hiatal hernia. The lungs are h yperinflated which is consistent with, but not diagnostic of chronic obstructive pulmonary disease. IMPRESSION: 1: NO ACUTE CARDIOPULMONARY DISEASE. Reviewed, dictated and finalized at location B. SFORCE ADMINISTRATOR
[2023-10-03 13:18] LABS: Influenza A QL RT-PCR Negative (Negative); Influenza B QL RT-PCR Negative (Negative); RSV RNA, RT-PCR Negative (Negative); SARS-CoV-2 RNA PCR Negative (Negative)
== END 2023-10-03 12:18 | disposition home or self-care (01) ==
LOC: CHSLAB 12:19
PROVIDERS: PCP Internal Medicine; Visit Provider Internal Medicine
DX: R05.9 Cough, unspecified (principal); J44.9 Chronic obstructive pulmonary disease, unspecified
CPT/HCPCS: 71046; 87637

== ENCOUNTER 2023-11-20 13:57 | Outpatient (CLI) | payer MEDICARE, MEDICAID, SELFPAY ==
--- NOTE | ~2023-11-20 | CT_ITS ---
EXAMINATION: CT lung screening DATE: 11/20/2023 14:17 INDICATION: History of nicotine dependence TECHNIQUE: Computed tomography (CT) of the chest was performed without intravenous contrast. The dose -length product was 64.97 mGy-cm. Automated exposure control and iterative reconstruction technique w ere employed. COMPARISON: CT dated 04/04/2021 FINDINGS: No thoracic lymphadenopathy. There is atherosclerosis of the aorta and coronary arteries. T here is a large hiatal hernia. No significant pleural or pericardial effusion. No endobronchial lesio ns. There is emphysema. Stable 5 mm right lower lobe nodule. There are a few additional scattered pul monary nodules measuring 2 mm or less. No new masses. No pneumothorax. Moderate thoracic spondylosis. Accentuated kyphosis. IMPRESSION: 1. Lung-RADS category 2: Benign appearance or behavior. Continue annual screening with noncontrast lo w-dose chest CT in 12 months. Reviewed, dictated and finalized at location A. IMPRESSION: 1. Lung-RADS category 2: Benign appearance or behavior. Continue annual screeni ng with noncontrast low-dose chest CT in 12 months.
== END 2023-11-20 13:58 | disposition home or self-care (01) ==
LOC: CHSIMG 13:59
PROVIDERS: PCP Internal Medicine; Visit Provider Nurse Practitioner Family
DX: Z12.2 Encounter for screening for malignant neoplasm of respiratory organs (principal); Z87.891 Personal history of nicotine dependence
CPT/HCPCS: 71271

== ENCOUNTER 2023-12-03 14:15 | Outpatient (CLI) | payer MEDICARE, MEDICAID, SELFPAY ==
--- NOTE | ~2023-12-03 | XR_ITS ---
XR shoulder RT min 2V 12/03/2023 14:50 Indication: Right shoulder pain Procedure: 4 views right shoulder Comparison: No prior studies for comparison. Findings: There is anatomic alignment. Mild polyarticular osteoarthritis. No fracture or traumatic ma lalignment. No foreign bodies. Impression: 1: Mild polyarticular osteoarthritis of the right shoulder. Reviewed, dictated and finalized at location B. Impression: 1: Mild polyarticular osteoarthritis of the right shoulder.
--- NOTE | ~2023-12-03 | XR_ITS ---
EXAMINATION:XR_[id number]_CR DATE: 12/03/2023 14:49 INDICATION: Neck pain TECHNIQUE: AP, lateral, and odontoid views of the cervical spine are provided. COMPARISON: None FINDINGS: Alignment is normal. The odontoid process appears to be intact but is somewhat obscured. No fracture is identified. The vertebral body heights are maintained. There is moderate loss of interve rtebral disc space height at C4-5 and C6-7. Small degenerative osteophytes project from the anterior endplates of multiple vertebral bodies. There is multilevel mild facet and uncovertebral joint osteoa rthritis. Prevertebral soft tissues are normal. IMPRESSION: 1. No acute osseous abnormality. Reviewed, dictated and finalized at location F.
== END 2023-12-03 14:16 | disposition home or self-care (01) ==
LOC: CHSIMG 14:17
PROVIDERS: PCP Internal Medicine; Visit Provider Internal Medicine
DX: M79.601 Pain in right arm (principal); M19.011 Primary osteoarthritis, right shoulder
CPT/HCPCS: 72040; 73030

== ENCOUNTER 2024-07-23 14:08 | Outpatient (CLI) | payer MEDICARE, MEDICAID, SELFPAY ==
--- NOTE | ~2024-07-23 | XR_ITS ---
CHEST RADIOGRAPH, PA AND LATERAL CLINICAL HISTORY: COPD Exacerbation, back pain . COMPARISON: 10/03/2023 TECHNIQUE: PA and lateral views of the chest. FINDINGS Large hiatal hernia. The remainder of the cardiomediastinal silhouette is otherwise unremarkable. Increased interstitial markings are identified bilaterally, findings suggesting mild pulmonary vascul ar congestion. The remainder of the lungs are clear. Visualized osseous structures and soft tissues are unremarkable. IMPRESSION: Mild pulmonary vascular congestion, without focal infiltrate or effusion. Reviewed, dictated and finalized at location A. T ACCOUNTANT
--- NOTE | ~2024-07-23 | XR_ITS ---
EXAM: XR lumbar spine 2-3V DATE: 07/23/2024 14:34 HISTORY: Low back pain x2 weeks, NKI . COMPARISON: CT L-spine 07/21/2022. FINDINGS: 5 nonrib-bearing lumbar-type vertebral bodies. Pedicles intact. Mild scoliosis. 2 mm anter olistheses at L3-4 and L4-5. Vertebral body heights preserved. Multilevel mild disc space narrowing a nd marginal osteophytosis. Multilevel moderate-severe mid and lower lumbar facet hypertrophy and scle rosis. Cholecystomy clips. Atherosclerotic calcifications without evident aneurysm. No fracture or di slocation. IMPRESSION: Mild scoliosis. Multilevel stable grade 1 listheses. Multilevel mild degenerative disc di sease. Multilevel moderate-severe mid and lower lumbar facet arthropathy. Reviewed, dictated and finalized at location K. AIN DRIER IMPRESSION: Mild scoliosis. Multilevel stable grade 1 listheses. Multilevel mil d degenerative disc disease. Multilevel moderate-severe mid and lower lumbar fa cet arthropathy.
== END 2024-07-23 14:09 | disposition home or self-care (01) ==
LOC: CHSIMG 14:10
PROVIDERS: PCP Internal Medicine; Visit Provider Internal Medicine
DX: M54.50 Low back pain, unspecified (principal); J44.1 Chronic obstructive pulmonary disease with (acute) exacerbation; M41.86 Other forms of scoliosis, lumbar region; M43.06 Spondylolysis, lumbar region; M51.369 Other intervertebral disc degeneration, lumbar region without mention of lumbar back pain or lower extremity pain; M12.88 Other specific arthropathies, not elsewhere classified, other specified site; R91.8 Other nonspecific abnormal finding of lung field
CPT/HCPCS: 71046; 72100

== ENCOUNTER 2024-11-30 14:27 | Outpatient (CLI) | payer MEDICARE, MEDICAID, SELFPAY ==
--- NOTE | ~2024-11-30 | CT_ITS ---
CTA chest PE protocol Ordering provider: Kiel Nelson MD History: 74 years Female with . dyspnea/positive D dimer,SOB,X4WKS . Comparison: None. Technique: CT angiogram chest was performed following timed intravenous injection of contrast. Thin s lice axial images and reformatted coronal images were obtained. Three dimensional reformatted images of the chest were also obtained using a [employer] workstation. . Automated exposure control and iterati ve reconstruction technique were employed. The dose-length product was 198.15 mGy-cm. 100 mL Omnipaqu e 350 was given IV. Findings: PULMONARY ARTERIES: No pulmonary embolus. VISUALIZED THORACIC INLET: Normal. MEDIASTINUM: Aorta/coronary arteries: Mild atheromatous disease. Heart/other: The heart is not enlarged. Lymph nodes: No mediastinal or hilar adenopathy. LUNGS: Nodule in the right middle lobe posteriorly measuring 8 mm adjacent to the transverse fissure. smalle r nodules seen measuring 7 mm in the lower lobe anteriorly... No pulmonary masses. No infiltrates or effusions. No pneumothorax. VISUALIZED UPPER ABDOMEN: Large sliding hiatus hernia. Status post cholecystectomy. Prominent pancrea tic duct measuring 5 mm. Stone in the left kidney upper pole measuring 8 mm. CBD measures 1 cm. Promi nent left adrenal gland. Otherwise, the visualized upper abdomen is normal. MUSCULOSKELETAL: Soft tissues: The superficial soft tissues are normal. Bones: Age appropriate degenerative changes of the spine. . The fracture in the left seventh rib. IMPRESSION: 1. No pulmonary embolism. 2. Large sliding hiatus hernia. 3. Prominent pancreatic duct and dilated CBD. Further evaluation advised. 4. Multiple nodules in the right lung. 5. Prominent left adrenal gland Reviewed, dictated and finalized at location A.
[2024-11-30 15:01] LABS: Estimated Glomerular Filt Rate 41
--- OUTSIDE RECORDS SUMMARY | 2024-11-30 16:59 | XMS_ITS | Clinical Summary ---
Author Organization [facility] Address [address] [place] [id number] Care Team Providers Care Web Developer Programmer Name Role Phone Kiel Nelson MD Primary Care Provider [phone] Allergies Active Allergy Reactions Criticality Noted Date Comments Codeine Anaphylaxis,Tachycardia High 05/09/2015 Ibuprofen Anaphylaxis High 05/09/2015 Nalbuphine Palpitations Low 08/21/2015 Medications albuterol sulfate HFA (VENTOLIN HFA) 108 (90 Base) MCG/ACT inhaler Inhale 2 puffs into the lungs 4 (four) times daily. 03/17/2017 Active albuterol sulfate HFA 108 (90 Base) MCG/ACT inhaler 01/29/2021 Act helena alendronate 70 MG tablet 07/12/2021 Active aspirin 325 MG tablet Take 325 mg by mouth daily. Active SYMBICORT 160-4.5 MCG/ACT inhaler 06/04/2021 Active busPIRone 10 MG tablet 07/16/2021 Active citalopram 40 MG tablet 07/16/2021 Active indomethacin 50 MG capsule 02/17/2021 Active predniSONE 5 mg tablet 08/09/2021 Active primidone 50 MG tablet Active spironolactone- hydroCHLOROthia zide 25-25 MG tablet Active topiramate 100 MG tablet Active verapamil 120 MG ER tablet 08/09/2021 Active montelukast 10 MG tablet Take 10 mg by mouth nightly at bedtime. Active albuterol sulfate HFA 108 (90 Base) MCG/ACT inhaler Inhale 2 puffs into the lungs every 6 (six) hours as needed for Wheezing. 1 g 08/25/2021 Active Social History Tobacco Use Types Packs/Day Years Used Date Smoking Tobacco: Every Day Cigarettes Smokeless Tobacco: Never Alcohol Use Standard Drinks/Week Comments Not Currently 0 (1 standard drink = 0.6 oz pur e alcohol) Comments Unknown Sex and Gender Information Value Date Recorded Sex Assigned at Not on file Legal Sex Female 10:36 PM CLERICAL AIDE TEACHER Gender Identity Not on file Sexual Orientation Not on file Last Filed Vital Signs Vital Sign Reading Time Taken Comments Blood Pressure 104/64 08/25/2021 8:30 PM CLERICAL AIDE TEACHER Pulse 76 03/17/2017 3:03 PM CDT Temperature 37.6 C (99.7 F) 08/25/2021 5:45 PM CLERICAL AIDE TEACHER Respiratory Rate - - Oxygen Saturation 97% 08/25/2021 8:30 PM CLERICAL AIDE TEACHER Inhaled Oxygen Concentration - - Weight 72.6 kg (160 lb) 08/25/2021 6:22 PM CLERICAL AIDE TEACHER Height 152.4 cm (5') 08/25/2021 6:22 PM CLERICAL AIDE TEACHER Body Mass Index 31.25 08/25/2021 6:22 PM CLERICAL AIDE TEACHER Plan of Treatment Health Maintenance Due Date Last Done Comments Colorectal Cancer Screening Colonoscopy (10 Years) 1950 Hepatitis C 1969 DTaP, Tdap and Td Vaccines ( 1 - Tdap) 1970 Mammogram Screening 1991 Zoster Vaccines (1 of 2) 2001 Annual Medicare Wellness Visit 2016 Dexa Scan (General) 2016 COVID-19 Vaccine (2023-2 5 season) 2024 Influenza Adult (#1) 2024 06/16/2020, 06/14/2019, 1950 RSV Immunization or 60+ Years (1 - 1-dose 75+ series) 2026 Pneumococcal Vaccine: 65+ Years Completed 07/13/2020, 06/14/2019, 1950 Meningococcal B Vaccine Aged Out No l onger eligible based on patient's age to complete this topic Meningococcal Vaccine Aged Out No rojelio salome eligible based on patient's age to complete this topic RSV Immunizations Under 20 Months Aged Out No longer eligible b ased on patient's age to complete this topic Insurance [facility] [place] [address] MEDICAID Care Teams Web Developer Programmer Relationship Specialty Start Date End Date Kiel Nelson MD [address] [place] [address] PCP - General INTERNAL MEDICINE 08/25/21
== END 2024-11-30 14:28 | disposition home or self-care (01) ==
LOC: CHSLAB 14:30
PROVIDERS: PCP Internal Medicine; Visit Provider Internal Medicine
DX: R06.00 Dyspnea, unspecified (principal); R79.1 Abnormal coagulation profile; K44.9 Diaphragmatic hernia without obstruction or gangrene; R91.8 Other nonspecific abnormal finding of lung field
CPT/HCPCS: 71275; Q9967

== ENCOUNTER 2024-12-30 13:23 | Outpatient (CLI) | payer MEDICARE, MEDICAID, SELFPAY ==
--- NOTE | ~2024-12-30 | CT_ITS ---
CT of the Abdomen: Indication: Pancreatic ductal dilatation Technique: 2.5 mm axial scans were obtained through the abdomen prior to and following intravenous a dministration of 100 cc of Omnipaque 350. Dose reduction technique was used on this scan by utilizing automated exposure control and iterative reconstruction technique. The dose-length product (DLP) was 464.81 mGy-cm. Findings: Scans through the lung bases are unremarkable. Large hiatal hernia present. The liver, spleen, and adrenal glands are within normal limits. Cholecystectomy clips are present. 7 mm ovoid nonobstructing left renal stone present. Punctate nonobstructing right renal stone present. There are atherosclerotic calcifications of the aorta. No lymphadenopathy. There is diffuse ductal dilatation of the main pancreatic duct is 7 mm. Common bile duct dilated to 1 4 mm. No distinct obstructing mass evident. Visualized bowel loops are unremarkable. No ascites. Small ventral fat-containing hernia present. Impression: Pancreatic ductal dilatation to 7 mm diffusely. No definite obstructing mass seen. Precise etiology i s unclear. Consider MR/MRCP or ERCP as indicated. Dilated common bile duct, which may be related to prior cholecystectomy. Bilateral nephrolithiasis, as above. Large hiatal hernia. Reviewed, dictated and finalized at location . Impression: Pancreatic ductal dilatation to 7 mm diffusely. No definite obstructing mass se en. Precise etiology is unclear. Consider MR/MRCP or ERCP as indicated. Dilated common bile duct, which may be related to prior cholecystectomy. Bilateral nephrolithiasis, as above. Large hiatal hernia.
[2024-12-30 13:45] LABS: Estimated Glomerular Filt Rate 46
--- OUTSIDE RECORDS SUMMARY | 2024-12-30 14:30 | XMS_ITS | Clinical Summary ---
Author Organization [facility] Address [address] [place] [address] Care Team Providers Care After School Coordinator Name Role Phone Kiel Nelson MD Primary Care Provider [phone] Allergies Active Allergy Reactions Criticality Noted Date [...] on file Legal Sex Female 10:36 PM TALLIER Gender Identity Not on file Sexual Orientation Not on file Last Filed Vital Signs Vital Sign Reading Time Taken Comments Blood Pressure 104/64 08/25/2021 8:30 PM TALLIER Pulse 76 03/17/2017 3:03 PM CDT Temperature 37.6 C (99.7 F) 08/25/2021 5:45 PM TALLIER Respiratory Rate - - Oxygen Saturation 97% 08/25/2021 8:30 PM TALLIER Inhaled Oxygen Concentration - - Weight 72.6 kg (160 lb) 08/25/2021 6:22 PM TALLIER Height 152.4 cm (5') 08/25/2021 6:22 PM TALLIER Body Mass Index 31.25 08/25/2021 6:22 PM TALLIER Plan of Treatment Health Maintenance Due Date Last Done Comments Colorectal Cancer Screening Colonoscopy (10 Years) 1950 Hepatitis C 1969 DTaP, Tdap and Td Vaccines ( 1 - Tdap) 1970 Mammogram Screening 1991 Zoster Vaccines (1 of 2) 2001 Annual Medicare Wellness Visit 2016 Dexa Scan (General) 2016 COVID-19 Vaccine ( - 2023-2 5 season) 2024 RSV Immunization or 60+ Years (1 - 1-dose 75+ series) 2026 Pneumococcal Vaccine: 50+ Years Completed 07/13/2020, 06/14/2019, 1950 Meningococcal B Vaccine Aged Out No l onger eligible based on patient's age to complete this topic Meningococcal Vaccine Aged Out No rojelio salome eligible based on patient's age to complete this topic RSV Immunizations Under 20 Months Aged Out No longer eligible b ased on patient's age to complete this topic Insurance [facility] MEDICAID Care Teams After School Coordinator Relationship Specialty Start Date End Date Kiel Nelson MD [address] [place] [id number] PCP - General INTERNAL MEDICINE 08/25/21
== END 2024-12-30 13:24 | disposition home or self-care (01) ==
PROVIDERS: PCP Internal Medicine; Visit Provider Internal Medicine
DX: K86.89 Other specified diseases of pancreas (principal); N20.0 Calculus of kidney; K44.9 Diaphragmatic hernia without obstruction or gangrene
CPT/HCPCS: 36415; 74170; 82565; Q9967

== ENCOUNTER 2025-05-27 14:59 | Outpatient (CLI) | payer MEDICARE, SELFPAY ==
[2025-05-27 15:25] LABS: Hematocrit 42.1 % (35.0-42.0); Hemoglobin 12.8 g/dL (11.7-13.8); Mean Corpuscular HGB Conc 30.4 g/dL (32-36); Mean Corpuscular Hemoglobin 26.4 pg (27.0-31.0); Mean Corpuscular Volume 86.8 fL (78.0-102.0); Platelet Count Result 329 K/mm3 (150-420); Red Blood Count 4.85 M/mm3 (4.20-5.40); White Blood Count 13.6 K/mm3 (4.8-10.8)
[2025-05-27 15:46] LABS: Alanine Aminotransferase 8 U/L (6-35); Albumin Level 4.0 g/dL (3.5-5.1); Alkaline Phosphatase 95 U/L (38-126); Amylase 168 U/L (30-110); Anion Gap 8 mmol/L (4-12); Aspartate Amino Transferase 18 U/L (14-36); Bilirubin,Total 0.4 mg/dL (0.2-1.3); Blood Urea Nitrogen 16 mg/dL (7-17); CRP < 0.5 mg/dL (<1.0); Calcium 9.1 mg/dL (8.4-10.2); Carbon Dioxide 27 mmol/L (22-30); Chloride 110 mmol/L (98-107); Creatine Kinase 65 U/L (30-135); Estimated Glomerular Filt Rate > 60; Glucose 96 mg/dL (65-110); Lipase 606 U/L (23-300); Osmolality Calculated 301 mOsm/kg (285-295); Potassium 3.7 mmol/L (3.4-5.0); Sodium 145 mmol/L (137-145); Total Protein 7.5 g/dL (6.3-8.2)
[2025-05-27 15:55] LABS: Troponin I < 0.012 ng/mL (0.000-0.034)
[2025-05-27 16:14] LABS: Thyroid Stimulating Hormone 0.638 uIU/mL (0.465-4.680)
[2025-05-29 07:08] LABS: CA 19-9 11 U/mL (0-35)
[2025-05-31 07:58] LABS: Carcinoembryonic Antigen 4.34
== END 2025-05-27 15:00 | disposition home or self-care (01) ==
PROVIDERS: PCP Internal Medicine; Visit Provider Internal Medicine
DX: R10.13 Epigastric pain (principal); K86.9 Disease of pancreas, unspecified; R97.8 Other abnormal tumor markers; K85.00 Idiopathic acute pancreatitis without necrosis or infection; R79.89 Other specified abnormal findings of blood chemistry; R53.83 Other fatigue
CPT/HCPCS: 36415; 80053; 82150; 82378; 82550; 82553; 83690; 84443; 84484; 85027; 86140; 86301

== ENCOUNTER 2025-06-06 13:08 | Outpatient (CLI) | payer MEDICARE, MEDICAID, SELFPAY ==
--- NOTE | ~2025-06-06 | CT_ITS ---
EXAMINATION: CT abdomen pelvis w con DATE: 06/06/2025 13:50 INDICATION: Acute pancreatitis. TECHNIQUE: Computed tomography (CT) of the abdomen and pelvis was performed with 100 mL Omnipaque 350 intravenous contrast. Automated exposure control and iterative reconstruction technique were employed. The dose-length product was 465.02 mGy-cm. COMPARISON: CT abdomen and pelvis 12/30/2024 FINDINGS: The visualized portions of the lung bases are clear without pneumonia or pleural effusion. The heart size is normal. No pericardial effusion. There is a large sliding hiatal hernia. The liver is normal. There are changes of cholecystectomy. The spleen is normal. The pancreatic duct is dilated to 7 mm. The adrenal glands are normal. There are cysts in the kidneys measuring up to 8 mm on the left. There is a 6 mm stone in left kidney. There is diverticulosis of the colon without evidence of diverticulitis. The appendix is not visualized. There are no pathologically enlarged lymph nodes. There is no free intraperitoneal fluid. There are changes of ventral hernia repair. There is moderate lumbar spondylosis. IMPRESSION: 1. Large sliding hiatal hernia. 2. Stable pancreatic duct dilatation, which may be seen with chronic pancreatitis or intraductal papillary mucinous neoplasm (IPMN). Reviewed, dictated and finalized at location E. IMPRESSION: 1. Large sliding hiatal hernia. 2. Stable pancreatic duct dilatation, which may be seen with chronic pancreatit is or intraductal papillary mucinous neoplasm (IPMN).
--- OUTSIDE RECORDS SUMMARY | 2025-06-06 13:25 | XMS_ITS | Clinical Summary ---
Author Organization [facility] Address [address] [place] [address] Phone Care Team Providers Care Welder Production Line Gas Name Role Phone Kiel Nelson MD Primary Care Provider [phone] Allergies Active Allergy Reactions Criticality Noted Date Comments Codeine Sulfate Anaphylaxis High 08/21/2015 Ibuprofen Anaphylaxis High 08/21/2015 Nalbuphine Hcl Palpitations 08/21/2015 Medications topiramate (TOPAMAX) 25 MG Tablet Take 25 mg by mouth 2 times daily. Active indomethacin (INDOCIN) 50 MG Capsule Take 50 mg by mouth 2 times daily. Active hydrochlorothiaz hernesto 25 MG Tablet Take 25 mg by mouth daily. Active aspirin 325 MG Tablet Take 325 mg by mouth daily. Active omeprazole (PRILOSEC) 40 MG CAPSULE DELAYED RELEASE Take 40 mg by mouth daily. Active primidone (MYSOLINE) 50 MG Tablet Take 50 mg by mouth daily. Active lisinopril (PRINIVIL, ZESTRIL) 20 MG TabletIndication s:two tabs at HS Take 20 mg by mouth daily. Indications : two tabs at HS Active citalopram (CELEXA) 10 MG Tablet 3 09/18/2015 Active nicotine (NICODERM CQ) 21 MG/24HR PATCH 24 HR 5 09/14/2015 Active KLOR-CON M20 20 MEQ Tablet Controlled Release Take 20 mEq by mouth daily. 1 08/29/2015 Active traZODone (DESYREL) 50 MG Tablet 3 08/12/2015 Active verapamil (CALAN-SR) 120 MG Tablet Controlled Release 5 09/13/2015 Active Active Problems Problem Noted Date Diagnosed Date Sacroiliac dysfunction 09/25/2015 Facet arthritis of lumbosacral region 09/25/2015 Mild osteoarthritis of both hips 09/25/2015 Tobacco dependency 09/25/2015 History of alcohol dependence 09/25/2015 Overview (09/25/2015): In remission since 2009 GERD (gastroesophageal reflux disease) 6 Enthesopathy of Right hip 09/25/2015 Social History Tobacco Use Types Packs/Day Years Used Date Smoking Tobacco: Every Day Cigarettes Tobacco Cessation:Ready to Q uit: Yes; Counseling Given: Yes Alcohol Use Standard Drinks/Week Comments No 0 (1 standard drink = 0.6 oz pur e alcohol) Comments No Sex and Gender Information Value Date Recorded Sex Assigned at Not on file Legal Sex Female 10:56 PM CDT Gender Identity Not on file Sexual Orientation Not on file Last Filed Vital Signs Vital Sign Reading Time Taken Comments Blood Pressure 151/76 09/25/2015 9:19 AM SUPERINTENDENT GAS DISTRIBUTION Pulse 78 10/02/2015 10:10 AM SUPERINTENDENT GAS DISTRIBUTION Temperature 36.9 C (98.4 F) 10/02/2015 10:10 AM SUPERINTENDENT GAS DISTRIBUTION Respiratory Rate 18 10/02/2015 10:10 AM SUPERINTENDENT GAS DISTRIBUTION Oxygen Saturation 99% 10/02/2015 10:10 AM SUPERINTENDENT GAS DISTRIBUTION Inhaled Oxygen Concentration - - Weight 75.8 kg (167 lb) 09/25/2015 9:19 AM SUPERINTENDENT GAS DISTRIBUTION Height 152.4 cm (5') 09/25/2015 9:19 AM SUPERINTENDENT GAS DISTRIBUTION Body Mass Index 32.61 09/25/2015 9:19 AM SUPERINTENDENT GAS DISTRIBUTION Plan of Treatment Health Maintenance Due Date Last Done Comments Hepatitis C Virus (HCV) Screening 1950 TdaP Immunization 1950 Cologuard 1996 Colonoscopy 1996 Colorectal Cancer Screening 1996 Immunochemical Fecal Occult Blood 1996 Pneumococcal Immunization (5 0+ years) (1 of 1 - PCV) 2001 Zoster Immunization (1 of 2) 2001 Influenza Immunization (#1) 2025 SARS-COV-2 Immunization (1 - 2023-25 season) 2025 Respiratory Syncytial Virus (RSV) Immunization (Adult) (1 - 1-dose 75+ series) 2026 Hepatitis B Immunization Aged Out No longer eligible based on patient's age to complete this topic Human Papillomavirus (HPV) Immunization Aged Out No longer eligible b ased on patient's age to complete this topic Meningococcal Immunization (ACWY) Aged Out No longer eligible based on patient's age to complete this topic Rotavirus Immunization Aged Out No lo nger eligible based on patient's age to complete this topic Care Teams Welder Production Line Gas Relationship Specialty Start Date End Date Kiel Nelson MD [address] [place] [address] PCP - General Internal Medicine 08/17/15
[2025-06-06 14:02] LABS: Hematocrit 41.0 % (35.0-42.0); Hemoglobin 12.4 g/dL (11.7-13.8); Mean Corpuscular HGB Conc 30.2 g/dL (32-36); Mean Corpuscular Hemoglobin 26.6 pg (27.0-31.0); Mean Corpuscular Volume 88.0 fL (78.0-102.0); Platelet Count Result 290 K/mm3 (150-420); Red Blood Count 4.66 M/mm3 (4.20-5.40); White Blood Count 13.4 K/mm3 (4.8-10.8)
[2025-06-06 14:23] LABS: Alanine Aminotransferase 9 U/L (6-35); Albumin Level 3.7 g/dL (3.5-5.1); Alkaline Phosphatase 85 U/L (38-126); Amylase 181 U/L (30-110); Anion Gap 8 mmol/L (4-12); Aspartate Amino Transferase 14 U/L (14-36); Bilirubin,Total 0.4 mg/dL (0.2-1.3); Blood Urea Nitrogen 20 mg/dL (7-17); Calcium 9.2 mg/dL (8.4-10.2); Carbon Dioxide 24 mmol/L (22-30); Chloride 110 mmol/L (98-107); Estimated Glomerular Filt Rate > 60; Glucose 90 mg/dL (65-110); Lipase 1137 U/L (23-300); Osmolality Calculated 296 mOsm/kg (285-295); Potassium 3.8 mmol/L (3.4-5.0); Sodium 142 mmol/L (137-145); Total Protein 6.8 g/dL (6.3-8.2)
== END 2025-06-06 13:09 | disposition home or self-care (01) ==
LOC: CHSIMG 13:10
PROVIDERS: PCP Internal Medicine; Visit Provider Internal Medicine
DX: K85.90 Acute pancreatitis without necrosis or infection, unspecified (principal); K44.9 Diaphragmatic hernia without obstruction or gangrene
CPT/HCPCS: 36415; 74177; 80053; 82150; 83690; 85027; Q9967

== ENCOUNTER 2025-06-17 12:26 | Outpatient (CLI) | payer MEDICARE, MEDICAID, SELFPAY ==
--- NOTE | ~2025-06-17 | XR_ITS ---
XR thoracic spine 3V Indication: Back Pain Comparison: None Findings: Moderate loss of vertebral height throughout. No acute fracture or subluxation. Moderate osteopenia. Moderate to severe loss of disc height throughout. Soft tissues unremarkable Impression: No acute abnormality. Reviewed, dictated and finalized at location P. Impression: No acute abnormality.
--- NOTE | ~2025-06-17 | XR_ITS ---
XR lumbar spine 2-3V Indication: Back Pain Comparison: None Findings: Moderate osteopenia. Grade 1 anterolisthesis of L3 on L4, no acute fracture. Moderate loss of disc height throughout. Soft tissues unremarkable Impression: No acute abnormality. Reviewed, dictated and finalized at location P. Impression: No acute abnormality.
== END 2025-06-17 12:27 | disposition home or self-care (01) ==
LOC: CHSIMG 12:28
PROVIDERS: PCP Internal Medicine; Visit Provider Internal Medicine
DX: M54.9 Dorsalgia, unspecified (principal)
CPT/HCPCS: 72072; 72100